=== PATIENT | female | born 2000 | race Two or more races ===

== ENCOUNTER 2019-10-07 07:30 | Inpatient (IN) | payer OTHER ==
[~2019-10-07] VITALS: Ht 160 cm; Wt 40.8 kg
[2019-10-09] MEDS ORDERED: NAPROXEN SODIU550 MG PO (08:46)
== END 2019-10-10 15:47 | disposition home or self-care (01) | DRG 743 ==
LOC: SURH 10-09 05:42 → O/R 10-09 05:42 → SURH 10-09 07:30 → O/R 10-09 07:30 → SURH 10-09 10:15
PROVIDERS: ADMIT Obstetrics & Gynecology Gynecologic Oncology
PROC: 0UB00ZZ Excision of Right Ovary, Open Approach (ICD-10-PCS; principal; 2019-10-09 10:15)
DX: N83.11 Corpus luteum cyst of right ovary (principal); N80.1 Endometriosis of ovary

== ENCOUNTER → 2020-10-13 | Outpatient (CLI) | payer OTHER ==
[~2020-10-13] MED LIST: NAPROXEN SODIU550 MG PO
== END | disposition home or self-care (01) ==
LOC: PPH VACUNA
DX: Z23 Encounter for immunization (principal)

== ENCOUNTER 2020-11-03 08:00 | Outpatient (CLI) | payer OTHER | END 2020-11-03 08:30 | disposition home or self-care (01) | LOC: PPH VACUNA 08:00 | DX: Z23 Encounter for immunization (principal) ==